=== PATIENT | male | born 1965 | race Caucasian/White ===

== ENCOUNTER 2018-02-21 13:53 | Emergency (ER) | payer SELFPAY ==
[~2018-02-21] VITALS: Ht 167.6 cm; Wt 73.8 kg
[~2018-02-21 13:53] MED LIST: LOPRESSOR25 MG PO; LOSARTAN POTASS50 MG PO
[2018-02-21 14:53] LABS: HEMATOCRIT 44.4 % (38.0-50.0); HEMOGLOBIN 15.5 G/DL (12.5-16.6); MCH 29.9 PG (29.0-34.0); MCHC 34.9 G/DL (30.0-36.0); MCV 85.7 FL (86-99); PLATELET COUNT 343 K/uL (156-360); RBC DIS.WIDTH-CV 12.2 % (11.8-14.6); RBC DIS.WIDTH-SD 38.2 % (39-53); RED BLOOD COUNT 5.18 M/uL (4.00-5.50); WHITE BLOOD COUNT 8.6 K/uL (4.1-10.2)
[2018-02-21 15:02] LABS: CHLORIDE 105 mEq/L (99-109); SODIUM 140 mEq/L (136-147)
[2018-02-21 15:03] LABS: GLUCOSE 114 mg/dL (70-99)
[2018-02-21 15:07] LABS: CREATININE 0.9 mg/dL (0.6-1.3); GFR ESTIMATE (CALCULATED) > 59 mL/min/ (58.99-99999)
[2018-02-21 15:08] LABS: UREA NITROGEN (BUN) 15 mg/dL (9-23)
[2018-02-21 15:15] LABS: TROP-I INTERPRETATION NEGATIVE; TROPONIN-I < 0.01 ng/mL (0.0-0.30)
[2018-02-21] MEDS ORDERED: LOSARTAN POTASS50 MG PO (15:33)
[2018-02-21] MEDS ORDERED: LOPRESSOR25 MG PO (15:33)
[2018-02-21 16:05] VITALS: BP 146/83
== END 2018-02-21 16:12 | disposition home or self-care (01) ==
LOC: EME 13:53
PROVIDERS: Physician Assistant
DX: I10 Essential (primary) hypertension (principal); R07.9 Chest pain, unspecified
CPT/HCPCS: 71046; 80048; 84484; 85027; 93005; 99281; 99283